=== PATIENT | female | born 1990 | race African-American/Black ===

== ENCOUNTER → 2019-08-07 12:52 | Outpatient (BNVA) | payer OTHER, SELFPAY | PROVIDERS: Family Provider Family Medicine; Visit Provider Family Medicine | DX: J02.9 Acute pharyngitis, unspecified (principal); R50.9 Fever, unspecified; Z20.828 Contact with and (suspected) exposure to other viral communicable diseases | CPT/HCPCS: 87804 ==

== ENCOUNTER → 2019-11-02 14:49 | Outpatient (BNVA) | payer OTHER, SELFPAY | PROVIDERS: Family Provider Family Medicine; Visit Provider Obstetrics & Gynecology | DX: Z20.2 Contact with and (suspected) exposure to infections with a predominantly sexual mode of transmission (principal); Z01.419 Encounter for gynecological examination (general) (routine) without abnormal findings; N63.10 Unspecified lump in the right breast, unspecified quadrant; N63.0 Unspecified lump in unspecified breast; Z78.9 Other specified health status; Z11.3 Encounter for screening for infections with a predominantly sexual mode of transmission | CPT/HCPCS: 80048; 85007; 85027; 87491; 87591; 87661; 87806; 88175 ==

== ENCOUNTER → 2019-11-06 12:58 | Outpatient (BNVA) | payer OTHER, SELFPAY | PROVIDERS: Family Provider Family Medicine; Visit Provider Obstetrics & Gynecology | DX: Z11.3 Encounter for screening for infections with a predominantly sexual mode of transmission (principal) | CPT/HCPCS: 87491; 87591; 87661 ==

== ENCOUNTER 2019-11-22 10:43 | Outpatient (CLI) | payer OTHER, SELFPAY ==
--- NOTE | 2019-11-22 11:00 | US_ITS ---
WS: [id number] DIAGNOSTIC RIGHT DIGITAL MAMMOGRAM WITH CAD RIGHT breast ultrasound, limited HISTORY: RT BREAST LUMP COMPARISON: None available. Technique: CC, MLO and ML views. Spot compression RIGHT CC. Breast composition: The breasts are heterogeneously dense, which may obscure small masses. Triangula r marker is placed in the upper outer quadrant of the RIGHT breast. There is no underlying soft tissu e abnormality. No distortion. No suspicious calcifications. RIGHT breast ultrasound: There are no suspicious masses. There is a prominent fibroglandular nodule at 9:00 measuring 2.4 x 1. 1 cm which is probably normal fibroglandular tissue. US/US breast RT limited* [id number] IMPRESSION: BI-RADS: 2-Benign FOLLOW UP: Age 40 LACK OF RADIOGRAPHIC EVIDENCE OF MALIGNANCY SHOULD NOT DELAY BIOPSY IF A CLINIC ALLY SUSPICIOUS MASS IS PRESENT.
--- NOTE | 2019-11-22 14:17 | MM_ITS ---
WS: [id number] DIAGNOSTIC RIGHT DIGITAL MAMMOGRAM WITH CAD RIGHT breast ultrasound, limited HISTORY: RT BREAST LUMP COMPARISON: None available. Technique: CC, MLO and ML views. Spot compression RIGHT CC. Breast composition: The breasts are heterogeneously dense, which may obscure small masses. Triangula r marker is placed in the upper outer quadrant of the RIGHT breast. There is no underlying soft tissu e abnormality. No distortion. No suspicious calcifications. RIGHT breast ultrasound: There are no suspicious masses. There is a prominent fibroglandular nodule at 9:00 measuring 2.4 x 1. 1 cm which is probably normal fibroglandular tissue. MM/[place] [id number] IMPRESSION: BI-RADS: 2-Benign FOLLOW UP: Age 40 LACK OF RADIOGRAPHIC EVIDENCE OF MALIGNANCY SHOULD NOT DELAY BIOPSY IF A CLINIC ALLY SUSPICIOUS MASS IS PRESENT.
== END 2019-11-22 10:44 | disposition home or self-care (01) ==
PROVIDERS: Visit Provider Obstetrics & Gynecology
DX: N63.10 Unspecified lump in the right breast, unspecified quadrant (principal)
CPT/HCPCS: 76642; 77065

== ENCOUNTER → 2023-07-29 13:00 | Outpatient (BNVA) | payer BC, MEDICAID, SELFPAY | PROVIDERS: Visit Provider Obstetrics & Gynecology | DX: R39.9 Unspecified symptoms and signs involving the genitourinary system (principal) | CPT/HCPCS: 81000 ==

== ENCOUNTER → 2023-10-28 14:44 | Outpatient (BNVA) | payer BC, MEDICAID, SELFPAY | PROVIDERS: Visit Provider Obstetrics & Gynecology | DX: Z12.4 Encounter for screening for malignant neoplasm of cervix (principal) | CPT/HCPCS: 87624 ==